=== PATIENT | male | born 1980 ===

== ENCOUNTER 2020-09-28 06:00 | Outpatient (CLI) | payer SELFPAY | END 2020-09-28 06:01 | disposition home or self-care (01) | LOC: ONCMED 09-29 08:18 | PROVIDERS: Visit Provider Internal Medicine Medical Oncology | DX: I26.99 Other pulmonary embolism without acute cor pulmonale (principal); Z79.01 Long term (current) use of anticoagulants; M51.26 Other intervertebral disc displacement, lumbar region; G83.4 Cauda equina syndrome; J30.9 Allergic rhinitis, unspecified | CPT/HCPCS: G0463 ==